=== PATIENT | female | born 1970 | race Caucasian/White ===

== ENCOUNTER 2024-04-16 02:42 | Emergency (ER) | payer MEDICAID ==
[~2024-04-16] VITALS: Ht 154.9 cm; Wt 74.0 kg
[2024-04-16 03:27] VITALS: O2SAT 100
[2024-04-16 03:59] LABS: BASOPHILS % 0.4 % (0.0-2.0); EOSINOPHILS % 1.3 % (0.0-5.0); HEMATOCRIT. 38.2 % (36.0-48.0); HEMOGLOBIN. 12.6 g/dL (12.0-16.0); MEAN CORPUSCULAR HEMOGLOBIN 28.2 pg (28.0-32.0); MEAN CORPUSCULAR HGB CONC 33.1 g/dL (31.0-37.0); MEAN CORPUSCULAR VOLUME 85.1 fL (81.0-99.0); MEAN PLATELET VOLUME 8.4 fl (7.4-10.4); MONOCYTES % 7.4 % (2.0-8.0); NEUTROPHILS % 59.9 % (40.0-76.0); PLATELET 245 x1000/uL (130-400); RED BLOOD CELL COUNT 4.48 mill/uL (4.2-5.4); RED CELL DISTRIBUTION WIDTH 14.2 % (11.6-14.6); WHITE BLOOD COUNT 6.8 x1000/uL (4.5-11.0)
[2024-04-16 04:06] LABS: CHLORIDE 109 mEq/L (98-107); POTASSIUM 3.9 mEq/L (3.5-5.1); SODIUM 142 mEq/L (136-145)
[2024-04-16 04:07] LABS: CALCIUM 9.2 mg/dL (8.7-10.4); CARBON DIOXIDE 27 mEq/L (21-32)
[2024-04-16 04:11] LABS: PROTHROMBIN TIME 10.8 sec (9.6-11.0)
[2024-04-16 04:12] LABS: CREATININE 0.8 mg/dL (0.6-1.0); GLUCOSE 101 mg/dL (70-105); UREA NITROGEN BLOOD 14 mg/dL (9-23)
[2024-04-16 04:14] LABS: ALANINE AMINOTRANSFERASE 18 IU/L (10-49); ALBUMIN 4.4 g/dL (3.2-4.8); ASPARTATE AMINOTRANSFERASE 19 IU/L (<34); BILIRUBIN DIRECT 0.3 mg/dL (<=3.0); PROTEIN TOTAL 6.7 g/dL (6.0-8.3)
[2024-04-16] MEDS ORDERED: IBUP-2029 MT (07:26)
[2024-04-16] MEDS ORDERED: ONDA4TAB11 PO (07:26)
[2024-04-16] MEDS ORDERED: METR-167 MT (07:26)
[2024-04-16 08:25] VITALS: BP 115/74; PULSE 87; RESP 18; TEMP 98.4
[2024-04-16] MEDS: ACETAMINOPHEN 325MG TABLET PO ONE (08:55)
== END 2024-04-16 08:50 | disposition home or self-care (01) ==
LOC: ER 02:42
DX: K37 Unspecified appendicitis (principal); K52.9 Noninfective gastroenteritis and colitis, unspecified
CPT/HCPCS: 36415; 74176; 80048; 80076; 85025; 99284